=== PATIENT | female | born 1930 | race Caucasian/White ===

== ENCOUNTER 2016-12-24 17:22 | Inpatient (IN) | payer OTHER, BC ==
[~2016-12-24] VITALS: Ht 139.7 cm; Wt 59.8 kg
[~2016-12-24 17:22] MED LIST: ADVAIR 250/501 DISK IH; ASPIRIN81 M2 PO; HYDROCHLOROTHIA25 MG PO; LOPRESSOR25 MG PO; MECLIZINE HCL25 MG PO; VALIUM2 MG PO
[2016-12-24 17:58] LABS: HEMATOCRIT 42.9 % (36.0-46.0); MCH 31.1 PG (29.0-34.0); MCV 88.8 FL (83-99); MEAN PLAT.VOLUME 8.8 uM^3 (9.5-12.4); PLATELET COUNT 207 K/uL (156-360); RBC DIS.WIDTH-CV 12.8 % (11.8-14.6); RED BLOOD COUNT 4.83 M/uL (3.80-5.20); WHITE BLOOD COUNT 13.8 K/uL (4.1-10.2)
[2016-12-24 18:06] LABS: CHLORIDE 102 mEq/L (99-109); POTASSIUM 3.5 mEq/L (3.7-5.4); SODIUM 138 mEq/L (136-147)
[2016-12-24 18:08] LABS: GLUCOSE 116 mg/dL (70-99)
[2016-12-24 18:09] LABS: ANION GAP 12 MEQ/L (2-14); INTER. NORMALIZED RATIO 1.1; PROTHROMBIN TIME 11.2 (9.2-11.2); PTT 31.4 (25-32)
[2016-12-24 18:10] LABS: TOTAL BILIRUBIN 0.5 mg/dL (0.0-1.0)
[2016-12-24 18:12] LABS: ALKALINE PHOSPHATASE 49 IU/L (3-129); GFR ESTIMATE (CALCULATED) 56 mL/min/
[2016-12-24 18:13] LABS: UREA NITROGEN (BUN) 33 mg/dL (9-23)
[2016-12-24] MEDS ORDERED: TOPROL XL25 MG PO (22:23)
[2016-12-24] MEDS ORDERED: PERCOCET 5/31 TABLET PO (22:24)
[2016-12-24] MEDS ORDERED: CENTRUM SILVER1 EAC3 PO (22:24)
[2016-12-24 23:52] LABS: C DIFF TOXIN NEGATIVE (NEGATIVE)
[2016-12-24 23:53] LABS: PROBE CHECK PASS; SPECIMEN PROCESSING CONTROL PASS
[2016-12-25 03:06] LABS: MCV 89.6 FL (83-99)
[2016-12-25 06:16] LABS: C-REACTIVE PROTEIN 9.5 MG/L (0-10)
[2016-12-25 06:29] LABS: EOSINOPHIL (%) 0.4 % (0-5); HEMATOCRIT 38.5 % (36.0-46.0); IMMATURE GRANULOCYTE (%) 0.1 % (0.0-0.7); IMMATURE GRANULOCYTE COUNT 0.1 K/uL; MCH 31.2 PG (29.0-34.0); MCHC 34.8 G/DL (30.0-36.0); MCV 89.5 FL (83-99); MEAN PLAT.VOLUME 9.1 uM^3 (9.5-12.4); MONOCYTE (%) 9.4 % (3-12); NEUTROPHIL (%) 80.9 % (45-76); NEUTROPHIL COUNT 8.6 K/uL (1.8-6.4); PLATELET COUNT 173 K/uL (156-360); RBC DIS.WIDTH-CV 12.8 % (11.8-14.6); RBC DIS.WIDTH-SD 41.3 % (39-53); WHITE BLOOD COUNT 10.6 K/uL (4.1-10.2)
[2016-12-25 06:44] LABS: CHLORIDE 105 mEq/L (99-109); POTASSIUM 3.7 mEq/L (3.7-5.4); SODIUM 139 mEq/L (136-147)
[2016-12-25 06:46] LABS: GLUCOSE 107 mg/dL (70-99)
[2016-12-25 06:47] LABS: ANION GAP 9 MEQ/L (2-14)
[2016-12-25 06:50] LABS: GFR ESTIMATE (CALCULATED) 56 mL/min/
[2016-12-25 06:51] LABS: UREA NITROGEN (BUN) 22 mg/dL (9-23)
[2016-12-25 08:08] LABS: POINT-OF-CARE METER ID UU14100415; POINT-OF-CARE USER ID AHSDISBJH
[2016-12-25 12:28] LABS: POINT-OF-CARE METER ID UU14100415
[2016-12-25 14:24] VITALS: BP 128/56
[2016-12-25 15:27] LABS: DELETE MACHINE DIFF? YES; HEMATOCRIT 38.9 % (36.0-46.0); MCH 29.9 PG (29.0-34.0); MCHC 33.2 G/DL (30.0-36.0); MCV 90.3 FL (83-99); MEAN PLAT.VOLUME 9.8 uM^3 (9.5-12.4); PLAT.SUFFICIENCY ADEQUATE; PLATELET COUNT 173 K/uL (156-360); RBC DIS.WIDTH-CV 13.2 % (11.8-14.6); RBC DIS.WIDTH-SD 43.2 % (39-53); RED BLOOD COUNT 4.31 M/uL (3.80-5.20); USER ID NPD; WHITE BLOOD COUNT 12.5 K/uL (4.1-10.2)
[2016-12-25 16:16] VITALS: BP 140/59
[2016-12-25 23:15] VITALS: BP 126/56
[2016-12-26 06:10] LABS: HEMATOCRIT 36.6 % (36.0-46.0); MCHC 32.8 G/DL (30.0-36.0); MCV 91.5 FL (83-99); MEAN PLAT.VOLUME 9.4 uM^3 (9.5-12.4); PLATELET COUNT 163 K/uL (156-360); RBC DIS.WIDTH-CV 13.2 % (11.8-14.6); RBC DIS.WIDTH-SD 44.1 % (39-53)
[2016-12-26 06:33] LABS: ALKALINE PHOSPHATASE 40 IU/L (3-129); ANION GAP 8 MEQ/L (2-14); CHLORIDE 105 MEQ/L (99-109); GFR ESTIMATE (CALCULATED) > 59 mL/min/; GLUCOSE 87 mg/dL (70-99); POTASSIUM 3.5 MEQ/L (3.7-5.4); SAMPLE HEMOLYSIS CHECK 0; SAMPLE ICTERIC CHECK 0; SAMPLE LIPEMIA CHECK 0; SODIUM 140 MEQ/L (136-147); TOTAL BILIRUBIN 0.5 MG/DL (0.0-1.0); UREA NITROGEN (BUN) 12 mg/dL (9-23)
[2016-12-26 08:27] VITALS: BP 138/62
[2016-12-26 16:25] VITALS: BP 147/76
[2016-12-26 23:54] VITALS: BP 138/63
[2016-12-27 08:41] VITALS: BP 146/75
== END 2016-12-27 10:19 | disposition home or self-care (01) | DRG 394 ==
LOC: EME 17:22 → 5EAST 23:57 → EDOF 23:57 → 5EAST 12-25 14:13
PROVIDERS: Emergency Medicine; Hospitalist; Internal Medicine
DX: K55.039 Acute (reversible) ischemia of large intestine, extent unspecified (principal); K62.5 Hemorrhage of anus and rectum; I10 Essential (primary) hypertension; I73.9 Peripheral vascular disease, unspecified; J44.9 Chronic obstructive pulmonary disease, unspecified; M19.90 Unspecified osteoarthritis, unspecified site; G89.4 Chronic pain syndrome; I25.10 Atherosclerotic heart disease of native coronary artery without angina pectoris; E78.5 Hyperlipidemia, unspecified; M81.0 Age-related osteoporosis without current pathological fracture; Z87.891 Personal history of nicotine dependence; Z87.11 Personal history of peptic ulcer disease
CPT/HCPCS: 74177; 80048; 80053; 82948; 83605; 85014; 85018; 85025; 85025 91; 85027; 85610; 85730; 86140; 87040; 87177; 87493; 99281; 99285; J0744; J1956; J2405; J7030; S0030